=== PATIENT | male | born 1990 | race Caucasian/White ===

== ENCOUNTER 2020-08-03 22:29 | Inpatient (IN) | payer SELFPAY ==
[2020-08-04] MEDS ORDERED: Vancomycin 1 GM/200 ML BAG ONE (02:09)
[2020-08-04 02:22] LABS: Mean Corpuscular Hemoglobin 32.8 pg (27.0-31.0); Mean Platelet Volume 9.4 fL (7.4-10.4); Platelet Count 153 thou/uL (130-400); RBC Distribution Width 11.3 % (11.5-14.5); Red Blood Cell (RBC) Count 4.25 mill/uL (4.70-6.10); White Blood Cell (WBC) Count 17.4 thou/uL (4.8-10.8)
[2020-08-04 02:29] LABS: ALT (SGPT) 30 U/L (8-55); AST (SGOT) 20 U/L (5-34); Albumin 4.3 g/dL (3.5-5.0); Alkaline Phosphatase 73 U/L (40-110); Anion Gap 15 mmol/L (10-20); BUN (Urea Nitrogen) 16 mg/dL (8.9-20.6); Bilirubin, Total 1.5 mg/dL (0.2-1.2); Calc. Creatinine Clearance 0 mL/min (70-130); Calcium 9.2 mg/dL (7.8-10.44); Carbon Dioxide 24 mmol/L (22-29); Chloride 102 mmol/L (98-107); Glucose 119 mg/dL (70-105); Potassium 3.7 mmol/L (3.5-5.1); Protein, Total 7.3 g/dL (6.0-8.3); Sodium 137 mmol/L (136-145)
[2020-08-04 02:40] LABS: Band 14 % (5-11); Lymphocytes 13 % (21-51); MDiff Complete? YES; Monocytes 10 % (0-10); Neutrophil 62 % (42-75)
[2020-08-04] MEDS ORDERED: Piperacillin/Tazobactam 4.5 GM VIAL ONE (03:34)
[2020-08-04] MEDS ORDERED: Nicotine 14 MG PATCH ONE (03:35)
[2020-08-04] MEDS ORDERED: Acetaminophen 325 MG TAB PO PRN (03:47)
[2020-08-04] MEDS ORDERED: traMADol HCl 50 MG TAB PO PRN (03:48)
[2020-08-04] MEDS ORDERED: Acetaminophen/Codeine 30-300mg Tablet PO PRN (03:48)
[2020-08-04 08:14] LABS: SARS-CoV-2 MS2 Positive; SARS-CoV-2 N Gene Negative; SARS-CoV-2 S Gene Negative; SARS-CoV-2 by NAA Not Detected (NotDetected); SARS-CoV-2 orf1ab Negative
[2020-08-04 08:29] VITALS: BMI 21.4
--- NOTE | 2020-08-04 08:54 | PDOC.HHP ---
Hospitalist HPI - History of Present Illness Hand pain History of Present Illness: Mr. Edmond is 30-year-old male with past medical history of methamphetamine abuse, asthma, anxiety/bipolar disorder, tobacco use who presented to the emergency room for a right finger infection. Patient reports that 3 days prior to admission he cut his knuckle on a razor blade. Yesterday he started to notice an increase in swelling and pus coming out of the wound on his finger. Overnight he started to develop subjective fevers and chills so he presented to the ED. Patient is right-hand dominant. He denies any numbness, weakness or paresthesias. In emergency room initial vital signs 109/67, 18, 98.7, 100% on room air. Lactic acid 1.6. WBC 17.4. H/H 14.0/40. BUN/CR 16/0.94. Sodium 137, potassium 3.7. Patient received vancomycin, Zosyn in the emergency room. Patient admitted to hospital service for further management. Hospitalist ROS - Review of Systems Constitutional: reports: fever, chills. denies: sweats, weakness, malaise Eyes: denies: vision change ENT: denies: nose congestion, throat pain Respiratory: denies: cough, dry, shortness of breath, hemoptysis Cardiovascular: denies: chest pain, palpitations, orthopnea, light headedness Gastrointestinal: denies: nausea, vomiting, abdominal pain, diarrhea, melena, hematochezia Genitourinary: denies: dysuria, hematuria Musculoskeletal: reports: hand pain. denies: arm pain Skin: reports: rash, lesions Neurological: denies: weakness, numbness, seizures - Medication Medications: Home medications include Depakote Seroquel No known drug allergies Hospitalist History - Past Medical History Other Medical History: Past medical history of Methamphetamine use Asthma childhood Anxiety/bipolar disorder with previous inpatient admissions - Past Surgical History Other Surgical History: Past surgical history of Tendon reattachment's of the left pinky Left foot surgery - Family History Other Family History: No pertinent family history. - Social History Smoking Status: Current every day smoker Tobacco Type: cigarettes Alcohol: reports: None Drugs: reports: methamphetamine Living Situation: Friends Activity level: independent ambulation - Exam General Appearance: NAD, awake alert Eye: PERRL, anicteric sclera ENT: normocephalic atraumatic, no oropharyngeal lesions, moist mucosa Neck: supple, symmetric, no JVD, no thyromegaly, no lymphadenopathy, no carotid bruit Heart: RRR, no murmur, no gallops, no rubs, normal peripheral pulses Respiratory: CTAB, no wheezes, no rales, no ronchi, normal chest expansion, no tachypnea, normal percussion Gastrointestinal: soft, non-tender, non-distended, normal bowel sounds, no palpable masses, no hepatomegaly, no splenomegaly, no bruit Extremities - other findings: Wound to right index finger Skin - other findings: Right index finger erythema, edema. No flexor tendon sheath tenderness. Neurological: cranial nerve grossly intact, normal sensation to touch, no weakness, no focal deficits, no new deficit Musculoskeletal: normal tone, normal strength, no muscle wasting Psychiatric: normal affect, normal behavior, A&O x 3 Hospitalist Results - Labs Result Diagrams: 08/04/20 01:31 08/04/20 01:31 Lab results: WBC 17.4 thou/uL (4.8-10.8) H 08/04/20 01:31 Hgb 14.0 g/dL (14.0-18.0) 08/04/20 01:31 Hct 40.0 % (42.0-52.0) L 08/04/20 01:31 MCV 94.0 fL (78.0-98.0) 08/04/20 01:31 Plt Count 153 thou/uL (130-400) 08/04/20 01:31 Band Neuts % (Manual) 14 % (5-11) H 08/04/20 01:31 Sodium 137 mmol/L (136-145) 08/04/20 01:31 Potassium 3.7 mmol/L (3.5-5.1) 08/04/20 01:31 Chloride 102 mmol/L (98-107) 08/04/20 01:31 Carbon Dioxide 24 mmol/L (22-29) 08/04/20 01:31 BUN 16 mg/dL (8.9-20.6) 08/04/20 01:31 Creatinine 0.94 mg/dL (0.7-1.3) 08/04/20 01:31 Glucose 119 mg/dL (70-105) H 12/07/20 01:31 Lactic Acid 1.6 mmol/L (0.5-2.2) 08/04/20 03:28 Calcium 9.2 mg/dL (7.8-10.44) 08/04/20 01:31 Total Bilirubin 1.5 mg/dL (0.2-1.2) H 08/04/20 01:31 AST 20 U/L (5-34) 08/04/20 01:31 ALT 30 U/L (8-55) 08/04/20 01:31 Alkaline Phosphatase 73 U/L (40-110) 08/04/20 01:31 Serum Total Protein 7.3 g/dL (6.0-8.3) 08/04/20 01:31 Albumin 4.3 g/dL (3.5-5.0) 08/04/20 01:31 Hospitalist H&P A/P - Plan Plan: 30 year-old male with PMHx of bipolar disorder, methamphetamine use, tobacco use presents with infection of his R index finger after cutting himself with a razor blade accidentally two days prior to admission. Cellulitis with abscess of right index finger Patient with wound by razor blad to his R index finger knuckle two days [employer]ING[employer]. Wound started draining pus. Finger is erythematous, edematous and extension limited by pain. No flexor tendon sheath tenderness to palmar aspect of finger. Neurovascularly intact. Area of fluctulance above PIP. Patient received IV vancomycin and zosyn in the ER. Will keep NPO and consult hand surgery for further recommendations. Plan -NPO, hand surgery consult -Plain film of R hand -Wound culture -Continue IV abx Sepsis without septic shock Patient meets sepsis criteria secondary to R index finger infection. WBC elevated at 17.4. Lactic acid 1.6. Febrile to 100.4. BP stable. Patient started on vancomycin and zosyn in the ER. Blood cultures drawn. Plan -Continue IV abx vancomycin and zosyn, IVF -Follow blood cultures -Trend WBC, fever curve Bipolar disorder Hx of bipolar disorder on Seroquel and Depakote. Currently denies SI/HI. Will continue home meds. Methamphetamine use Hx of methamphetamine abuse. Patient does not know when he last used. Tox screen. Tobacco use Patient smokes 1PPD. Will have nicotine patch available. Counseled on smoking cessation. DVT prophylaxis: SCDs FULL CODE Patient discussed with Dr. Crowe.
[2020-08-04] MEDS ORDERED: Ondansetron ODT 4 MG TAB PO PRN (09:05)
[2020-08-04] MEDS ORDERED: Ondansetron PF 4 MG/2 ML Vial IVP PRN (09:05)
[2020-08-04] MEDS: Piperacillin/Tazobactam 3.375 GM in Sodium Chloride 0.9% 100 ML IVPB SCH ×3 (09:31→20:31)
[2020-08-04] MEDS: Sodium Chloride 0.9% 1,000 ML IV SCH ×2 (09:31→20:35)
[2020-08-04] MEDS: Nicotine 14 MG PATCH TD SCH (09:32)
--- NOTE | 2020-08-04 09:36 | RAD ---
RADIOGRAPH RIGHT HAND 3VIEWS: DATE: 08/04/2020 HISTORY: 30-year-old male with "right hand abscess" FINDINGS: There is no evidence of fracture or dislocation. There is no evidence of periostitis, permeative lesi on, osteolytic lesion, or osteoblastic lesion. The joint spaces are maintained without erosions or significant osteophytes. There is soft tissue swelling of the index finger, especially its mid and pr oximal portions. There is no subcutaneous emphysema. No soft tissue calcifications. IMPRESSION: 1) soft tissue edema of right second digit. 2) no osseous abnormality.
[2020-08-04] MEDS: Vancomycin HCl 1.25 GM in Sodium Chloride 0.9% 250 ML 250 ML IVPB SCH ×2 (11:43→17:28)
[2020-08-04 15:11] LABS: Amphetamine Detected (NotDetected); Barbiturates Screen Not Detected (NotDetected); Benzodiazepine Screen Not Detected (NotDetected); Cocaine Metabolite Screen Not Detected (NotDetected); Medtox Control Line Valid? VALID (VALID); Medtox Reader # READER 4; Methadone Not Detected (NotDetected); Methamphetamine Detected (NotDetected); Opiate Screen Not Detected (NotDetected); Oxycodone Screen Not Detected (NotDetected); Phencyclidine (PCP) Not Detected (NotDetected); THC/Cannabinoid Screen Detected (NotDetected); Tricyclic Screen Not Detected (NotDetected)
[2020-08-05 01:56] LABS: Vancomycin, Trough 6.8 ug/mL
[2020-08-05] MEDS: Vancomycin HCl 1.25 GM in Sodium Chloride 0.9% 250 ML 250 ML IVPB SCH ×3 (02:43→19:22)
[2020-08-05] MEDS: Sodium Chloride 0.9% 1,000 ML IV SCH ×2 (02:44→19:22)
[2020-08-05] MEDS: Piperacillin/Tazobactam 3.375 GM in Sodium Chloride 0.9% 100 ML IVPB SCH ×5 (04:18→23:11)
[2020-08-05 06:30] LABS: #Basophils 0.1 thou/uL (0.0-0.2); #Eosinphils 0.4 thou/uL (0.0-0.7); #Monocytes 1.8 thou/uL (0.11-0.59); #Neutrophils 9.9 thou/uL (1.40-6.50); %Basophils 0.5 % (0.0-1.0); %Eosinophils 3.1 % (0.0-10.0); %Lymphocytes 13.8 % (21.0-51.0); %Monocytes 12.8 % (0.0-10.0); %Neutrophils 69.8 % (42.0-75.0); Hemoglobin 14.5 g/dL (14.0-18.0); Mean Corpuscular HGB CONC 34.5 g/dL (32.0-36.0); Mean Corpuscular Hemoglobin 32.7 pg (27.0-31.0); Mean Platelet Volume 9.4 fL (7.4-10.4); Platelet Count 150 thou/uL (130-400); RBC Distribution Width 11.4 % (11.5-14.5); Red Blood Cell (RBC) Count 4.45 mill/uL (4.70-6.10); White Blood Cell (WBC) Count 14.2 thou/uL (4.8-10.8)
[2020-08-05 06:52] LABS: Anion Gap 14 mmol/L (10-20); BUN (Urea Nitrogen) 9 mg/dL (8.9-20.6); Calc. Creatinine Clearance 116 mL/min (70-130); Calcium 8.8 mg/dL (7.8-10.44); Carbon Dioxide 22 mmol/L (22-29); Chloride 104 mmol/L (98-107); Glucose 96 mg/dL (70-105); Potassium 4.1 mmol/L (3.5-5.1); Sodium 136 mmol/L (136-145)
[2020-08-05] MEDS ORDERED: Vancomycin HCl 1.25 GM in Sodium Chloride 0.9% 250 ML 250 ML IVPB SCH (09:00)
--- NOTE | 2020-08-05 10:59 | PDOC.HOSPP ---
- Subjective Encounter Date: 08/05/20 Encounter Time: 10:53 Subjective: No overnight events. Patient continues to endorse mild pain to his R hand. Denies fevers, night-sweats, or chills. Chart and records reviewed. - Objective Vital Signs & Weight: Vital Signs (12 hours) Temp Pulse Resp BP BP Pulse Ox 08/05/20 07:27 98.5 F 60 18 99/64 97 08/05/20 04:56 98.0 F 65 20 108/70 96 08/05/20 00:46 98.5 F 71 20 102/67 95 Weight Weight 141 lb 1.533 oz Result Diagrams: 08/05/20 06:03 08/05/20 06:03 Hospitalist ROS - Review of Systems Constitutional: denies: fever, chills, sweats, weakness, malaise, other Eyes: denies: vision change ENT: reports: mouth swelling. denies: nose congestion, throat pain Respiratory: denies: cough, dry, shortness of breath, sputum, wheezing Cardiovascular: denies: chest pain, palpitations, light headedness Gastrointestinal: denies: nausea, vomiting, abdominal pain, melena, hematochezia Genitourinary: denies: dysuria, hematuria Musculoskeletal: reports: hand pain Skin: reports: rash, lesions Neurological: denies: weakness, numbness - Medication Medications: Active Medications Generic Name Dose Route Start Last Admin Trade Name Freq PRN Reason Stop Dose Admin Piperacillin Sod/Tazobactam 100 mls @ 200 mls/hr 08/04/20 09:00 08/05/20 09:04 Sod 3.375 gm/ Sodium Chloride IVPB 100 mls 0300,0900,1500,2100 ERICA Administration Sodium Chloride 1,000 mls @ 100 mls/hr 08/04/20 09:15 08/05/20 02:44 Normal Saline 0.9% IV 1,000 mls .Q10H ERICA Administration Nicotine 14 mg 08/04/20 10:00 08/04/20 09:32 Nicotine 14 Mg Patch TD 14 mg Q24HR ERICA Administration Tramadol HCl 50 mg 08/04/20 03:48 08/04/20 20:32 Tramadol Hcl 50 Mg Tab PO 50 mg Q6H PRN Administration Moderate Pain (4-6) - Exam General Appearance: NAD, awake alert Eye: PERRL, anicteric sclera ENT: normocephalic atraumatic, no oropharyngeal lesions, moist mucosa Neck: supple, symmetric, no JVD, no thyromegaly, no lymphadenopathy, no carotid bruit Heart: RRR, no murmur, no gallops, no rubs, normal peripheral pulses Respiratory: CTAB, no wheezes, no rales, no ronchi, normal chest expansion, no tachypnea, normal percussion Gastrointestinal: soft, non-tender, non-distended, normal bowel sounds, no palpable masses, no hepatomegaly, no splenomegaly, no bruit Skin - other findings: Erythema, induration, edema to R index finger with purulent drainage Neurological: cranial nerve grossly intact, normal sensation to touch, no weakness, no focal deficits, no new deficit Musculoskeletal: normal tone, normal strength, no muscle wasting Psychiatric: normal affect, normal behavior, A&O x 3 Hosp A/P - Plan Plan: 30 year-old male with PMHx of bipolar disorder, methamphetamine use, tobacco use presents with infection of his R index finger after cutting himself with a razor blade accidentally two days prior to admission. Cellulitis of right index finger Patient with wound by razor blad to his R index finger knuckle two days [employer]. Wou nd started draining pus. Finger is erythematous, edematous and extension limited by pain. No flexor tendon sheath tenderness to palmar aspect of finger. Neurovascularly intact. Area of fluctulance above PIP. Patient received IV vancomycin and zosyn in the ER. Plain film of R hand revealed soft-tissue swelling with no sings of gas or fluid collection. Hand surgery consulted. Recommendations appreciated. Plan -NPO, hand surgery consult -Wound culture -Continue IV abx Sepsis without septic shock Patient meets sepsis criteria secondary to R index finger infection. WBC e levated at 17.4. Lactic acid 1.6. Febrile to 100.4. BP stable. Patient started on vancomycin and zosyn in the ER. Blood cultures drawn. Plan -Continue IV abx vancomycin and zosyn, IVF -Follow blood cultures -Trend WBC, fever curve Bipolar disorder Hx of bipolar disorder on Seroquel and Depakote. Currently denies SI/HI. Will continue home meds. Methamphetamine use Hx of methamphetamine abuse. Tox screen positive. Tobacco use Patient smokes 1PPD. Will have nicotine patch available. Counseled on smoking cessation. DVT prophylaxis: SCDs FULL CODE Patient discussed with Dr. Crowe.
[2020-08-05] MEDS ORDERED: FLU VACC QS2020-21(6MOS UP)/PF 60 MCG/0.5 ML SYRINGE IM ONE (11:15)
[2020-08-05] MEDS ORDERED: Dexamethasone 20 MG/5 ML VIAL ONE (11:29)
[2020-08-05] MEDS ORDERED: Ketorolac Tromethamine 30 MG/ML VIAL ONE (11:29)
[2020-08-05] MEDS ORDERED: Ondansetron PF 4 MG/2 ML Vial ONE (11:29)
[2020-08-05] MEDS ORDERED: PROPOFOL 200 MG/20 ML VIAL ONE (11:29)
[2020-08-05] MEDS ORDERED: diphenhydrAMINE 50 MG/ML VIAL ONE (11:29)
[2020-08-05] MEDS: Nicotine 14 MG PATCH TD SCH (13:41)
[2020-08-05] MEDS ORDERED: Sodium Chloride 0.9% 20 ML ONE (18:10)
[2020-08-05] MEDS ORDERED: Bupivacaine PF 0.5% 30 ML VIAL ONE (18:10)
[2020-08-05] MEDS ORDERED: Fentanyl 100 MCG/2 ML VIAL ONE (18:21)
[2020-08-05] MEDS ORDERED: Midazolam HCl 2 mg/2 ml Vial ONE (18:21)
[2020-08-05] MEDS ORDERED: Promethazine HCl 25 MG/ML VIAL IM PRN (19:43)
[2020-08-05] MEDS ORDERED: PACU-Morphine 4MG/ML VIAL SLOW IVP PRN (19:43)
[2020-08-05] MEDS ORDERED: Morphine Sulfate 2 MG/ML SYRINGE SLOW IVP PRN (19:43)
[2020-08-05] MEDS ORDERED: Meperidine HCl/PF 25 MG/ML VIAL SLOW IVP PRN (19:43)
[2020-08-05] MEDS ORDERED: Ondansetron HCl/PF 4 MG/2 ML Vial IVP PRN (19:43)
[2020-08-05] MEDS ORDERED: Morphine 4 MG/ML VIAL SLOW IVP PRN (22:16)
[2020-08-05] MEDS: Ketorolac Tromethamine 30 MG/ML VIAL IVP SCH (23:09)
[2020-08-06] MEDS: Vancomycin HCl 1.25 GM in Sodium Chloride 0.9% 250 ML 250 ML IVPB SCH ×4 (02:35→19:31)
[2020-08-06 04:44] LABS: #Lymphocytes 1.4 thou/uL (1.20-3.40); #Monocytes 1.1 thou/uL (0.11-0.59); #Neutrophils 8.5 thou/uL (1.40-6.50); %Basophils 0.3 % (0.0-1.0); %Eosinophils 0.3 % (0.0-10.0); %Lymphocytes 12.7 % (21.0-51.0); %Monocytes 10.3 % (0.0-10.0); %Neutrophils 76.5 % (42.0-75.0); Mean Corpuscular HGB CONC 33.6 g/dL (32.0-36.0); Mean Corpuscular Hemoglobin 32.8 pg (27.0-31.0); Mean Corpuscular Volume 97.5 fL (78.0-98.0); Mean Platelet Volume 9.6 fL (7.4-10.4); Platelet Count 176 thou/uL (130-400); RBC Distribution Width 11.2 % (11.5-14.5); Red Blood Cell (RBC) Count 4.58 mill/uL (4.70-6.10); White Blood Cell (WBC) Count 11.1 thou/uL (4.8-10.8)
[2020-08-06] MEDS: Sodium Chloride 0.9% 1,000 ML IV SCH ×3 (04:45→11:16)
[2020-08-06 05:06] LABS: Vancomycin, Random 20.7 ug/mL (See Comment)
[2020-08-06 05:07] LABS: Anion Gap 16 mmol/L (10-20); BUN (Urea Nitrogen) 18 mg/dL (8.9-20.6); Calc. Creatinine Clearance 84 mL/min (70-130); Calcium 8.8 mg/dL (7.8-10.44); Carbon Dioxide 25 mmol/L (22-29); Chloride 103 mmol/L (98-107); Glucose 99 mg/dL (70-105); Potassium 3.8 mmol/L (3.5-5.1); Sodium 140 mmol/L (136-145)
[2020-08-06] MEDS: Ketorolac Tromethamine 30 MG/ML VIAL IVP SCH ×3 (07:10→17:02)
[2020-08-06] MEDS: Piperacillin/Tazobactam 3.375 GM in Sodium Chloride 0.9% 100 ML IVPB SCH ×3 (07:52→19:29)
[2020-08-06] MEDS: Nicotine 14 MG PATCH TD SCH (10:04)
--- NOTE | 2020-08-06 18:20 | PDOC.HOSPP ---
- Subjective Encounter Date: 08/06/20 Encounter Time: 11:40 Subjective: Patient is seen this morning for follow-up on right hand cellulitis. He was taken to the OR yesterday for an I&D. He states he is feeling well at this time and feels his hand is getting better. Patient frequently leaving room to go outside and smoke, has missed multiple timed antibiotics due to this. Highly encourage patient to be compliant with plan of care discussed the risks involved if he does not receive his antibiotics or if the infection were to get worse. He stated he would no longer miss an antibiotic and would work to stay in his room. - Objective Vital Signs & Weight: Vital Signs (12 hours) Temp Pulse Resp BP Pulse Ox 08/06/20 16:09 98.0 F 57 L 18 113/71 100 08/06/20 11:12 97.5 F L 73 20 113/55 L 95 Weight Weight 141 lb 1.533 oz I&O: 08/05/20 08/06/20 08/07/20 06:59 06:59 06:59 Intake Total 800 Balance 800 Result Diagrams: 08/06/20 04:29 08/06/20 04:29 Hospitalist ROS - Medication Medications: Active Medications Generic Name Dose Route Start Last Admin Trade Name Freq PRN Reason Stop Dose Admin Piperacillin Sod/Tazobactam 100 mls @ 200 mls/hr 08/05/20 23:59 08/06/20 07:52 Sod 3.375 gm/ Sodium Chloride IVPB 100 mls Q6HR ERICA Administration Vancomycin HCl 1.25 gm/ Sodium 250 mls @ 166.667 mls/hr 08/06/20 09:00 08/06/20 11:14 Chloride IVPB 08/10/20 21:01 250 mls 0300,0900,1500,2100 ERICA Administration Ketorolac Tromethamine 30 mg 08/05/20 23:00 08/06/20 10:02 Ketorolac Tromethamine 30 Mg/Ml Vial IVP 08/10/20 23:01 30 mg 0500,1100,1700,2300 ERICA Administration Nicotine 14 mg 08/04/20 10:00 08/06/20 10:04 Nicotine 14 Mg Patch TD Not Given Q24HR ERICA Tramadol HCl 50 mg 08/04/20 03:48 08/04/20 20:32 Tramadol Hcl 50 Mg Tab PO 50 mg Q6H PRN Administration Moderate Pain (4-6) Hosp A/P - Plan Cellulitis of right index finger -Taken to OR yesterday -Awaiting wound culture results -Continue IV abx Sepsis without septic shock -Continue IV abx vancomycin and zosyn, IVF -Follow blood cultures -Trend WBC, fever curve Bipolar disorder Hx of bipolar disorder on Seroquel and Depakote. Currently denies SI/HI. Will continue home meds. Methamphetamine use Hx of methamphetamine abuse. Tox screen positive. Tobacco use Patient smokes 1PPD. Patient taking multiple trips outside to smoke, encouraged patient to stay in room to receive antibiotics on time and to use nicotine patch.
--- NOTE | 2020-08-06 18:54 | CON ---
DATE OF CONSULTATION: 08/06/2020 HISTORY OF PRESENT ILLNESS: Laceration of the right index finger while he was trying to cut a piece of plastic, history of bipolar disorder, prior chronic left otitis media with rupture of tympanic membrane and hearing deficit and homelessness, who inadvertently sustained an injury to his right index finger while he was trying to cut a piece of plastic with a razor blade. This occurred 4 days before admission. He developed inflammatory changes, went to [facility] and he was referred for admission. He initially left against medical advice and then came straight to the emergency room at [facility]. Dr. Jain has operated on the index finger. Unfortunately, the operative report is not yet available. The hand is dressed with a splint. He denies any headaches, visual symptoms, sore throat, odynophagia, or dysphagia. No dental pain. No back pain. No cough or sputum production. No chest pain. No abdominal pain. No diarrhea. No genitourinary symptoms. No joint symptoms outside the involved area. MEDICAL HISTORY: Bipolar disorder, asthma, chronic otitis media on left side with hearing impairment, left foot surgery. SOCIAL HISTORY: History of methamphetamine use in the past. Current smoker and there are some questions regarding his living arrangements. Looks like he has been homeless in the recent past. ALLERGIES: NONE. MEDICATIONS: 1. Depakote. 2. Seroquel. PHYSICAL EXAMINATION: VITAL SIGNS: T-max 100.4, blood pressure 113/71, heart rate 57, respiratory rate 18, O2 saturation 100%. GENERAL: He appears in no distress. EXTREMITIES: The right hand is encased in a bulky dressing with a splint. LYMPHATIC: He has no lymphadenopathy. HEENT: Ocular movements conjugate. Oral cavity normal. A few missing teeth. NECK: Supple. No jugular venous distention. LUNGS: Symmetric. Clear breath sounds. HEART: S1 and S2. Regular rate. No S3 or S4. ABDOMEN: Soft, not distended or tender. No ascites. No bladder distention. JOINT: No joint inflammatory activity outside the involved area. NEUROLOGIC: Nonfocal. LABORATORY DATA: White cell count 17.4, down to 11; hemoglobin 15; platelets 176. Sodium 140, creatinine 1.14, and transaminases normal. Albumin 4.3. SARS-CoV-2 PCR not detected. Two different samples from the finger, one from August 03 and the second from August 04 with beta-hemolytic Streptococcus group A retrieved. There was another culture from today, which is pending. Two sets of blood culture, no growth in 48 hours. Unfortunately, due to problems with the [employer], I cannot access the reports from the x-rays. ASSESSMENT: Homelessness, bipolar disorder, and asthma history with accidental laceration of the right index finger. Inflammatory changes developed a few days after secondary to group A Streptococcus infection. Unfortunately, I cannot access the radiology reports and the surgical report is not yet transcribed, so I am going to go ahead and switch him to [facility] and then preparation for discharge planning hopefully tomorrow on oral medication depending on Dr. Jain's evaluation and the need for further surgical intervention. We will go ahead and check his human immunodeficiency virus and hepatitis C serology while he is here. ADDENDUM: my[employer] functions have been recovered and I was able to review all the data. With that in mind, the hand x-ray did not show any evidence of osteolytic changes and we are just waiting on the report from Dr. Jain's intervention to then decide on outpatient antimicrobial therapy requirements. Potentially, we could conceive of discharge planning on oral Keflex 500 four times daily. Job ID: [id number]
[2020-08-06 20:01] VITALS: BP 101/65; TEMP 97.4
--- NOTE | 2020-08-06 20:12 | PDOC.EVN ---
Event Note - Event Note Event Note: Notified by RN, patient leaving AMA due to family emergency.
[2020-08-06 20:26] LABS: Vancomycin, Trough 15.9 ug/mL
--- NOTE | 2020-08-07 07:34 | OP ---
DATE OF PROCEDURE: 08/05/2020 PREOPERATIVE DIAGNOSIS: Left index finger proximal interphalangeal joint abscess. POSTOPERATIVE DIAGNOSES: Abscess cavity was thick almost 1 mm to 1.5 mm and there was erosion of the entire extensor mechanism tendon at the joint level with infection to the skin, subcutaneous, extensor tendon, both sides and the joint. PROCEDURES PERFORMED: 1. Arthrotomy with abscess drainage. 2. Tenotomy, extensor tendon involving the necrotic portion leaving almost a 3 mm gap in the extensor tendon with only the lateral band still intact. SPECIMEN SENT: Cultures for aerobic, anaerobic, AFB (which include tissue) and fungal. TOURNIQUET TIME: 11 minutes. ESTIMATED BLOOD LOSS: Less than or equal to 10 mL. INJECTABLES: 20 mL 0.5% Marcaine. DESCRIPTION OF PROCEDURE: After successful general endotracheal anesthesia, limb prepped and draped. Time-out was done appropriately. The patient had injection of the 10 mL preop, metacarpophalangeal joint block level, waited 2 minutes, exsanguinated the limb, then inflated tourniquet to 250 mmHg pressure. At this point, the exsanguinated limb had the already 12 mm transverse incision just distal to the joint where gross purulence could be seen, extended in a zigzag fashion, 1 cm distal and 15 mm proximal. Exposing the extensor mechanism and medially, the skin edges at this laceration had purulence. The subcutaneous tissue between skin and the extensor mechanism had purulence, the periosteal layer between the under surface extensor mechanism and the joint had purulence and there was purulence in the joint. We slowly debrided this with a combination of [place]od[place] blade, tenotomy scissors, curette from each level until we had removed enough tissue to send for cultures. We also used a tenotomy scissors to debride the edges of the tendon in a formal tenotomy 1 mm, so that we could reach noninfected, nonfriable tissue. With this exposure, we were able to visualize the joint, and do the same type of synovectomy debridement using tenotomy scissors and excisional technique at the level of the joint. We irrigated this with 2 L normal saline and Pulsavac pressure, debridement of subcutaneous tissue as well as the wound itself, and then packed the wound with normal saline soaked gauze, 4x4s on top of this, a splint and the patient then left the operating room with no evidence of anesthetic or operative complication. Job ID: [id number]
[2020-08-07] MEDS ORDERED: cefTRIAXone\\ROCEPHIN 2 GM in Sodium Chloride 0.9% 100 ML IVPB SCH (09:00)
[2020-08-08 15:37] LABS: Fungus Stain Final report (.)
== END 2020-08-06 21:25 | disposition home or self-care (01) | DRG 854 ==
LOC: ERS 22:29 → ERHOLD 08-04 03:09 → T4-B 08-04 07:11
PROVIDERS: ADMIT Internal Medicine; ATTEND Internal Medicine
PROC: 0RBX0ZZ Excision of Left Finger Phalangeal Joint, Open Approach (ICD-10-PCS; principal; 2020-08-05)
DX: A41.9 Sepsis, unspecified organism (principal); R64 Cachexia; F41.9 Anxiety disorder, unspecified; F31.9 Bipolar disorder, unspecified; F15.90 Other stimulant use, unspecified, uncomplicated; L03.011 Cellulitis of right finger; F17.210 Nicotine dependence, cigarettes, uncomplicated; J45.909 Unspecified asthma, uncomplicated; H66.92 Otitis media, unspecified, left ear; Z20.828 Contact with and (suspected) exposure to other viral communicable diseases; Z79.899 Other long term (current) drug therapy; Z59.0 Homelessness; Z53.29 Procedure and treatment not carried out because of patient's decision for other reasons; Z68.21 Body mass index [BMI] 21.0-21.9, adult
CPT/HCPCS: 36415; 80048; 80053; 80202; 80306; 83605; 85025; 87040; 87070; 87077; 87102; 87116; 87186; 87205; 87206; 87635; 93005; 93010; 94760; 96365; 96367; J1100; J1200; J1885; J2250; J2405; J2543; J2704; J3010; J3370; J3490; J7050; S0020; U0003

== ENCOUNTER 2020-08-08 02:58 | Emergency (ER) | payer SELFPAY | END 2020-08-08 05:27 | disposition home or self-care (01) | LOC: ERS 02:58 | DX: L08.9 Local infection of the skin and subcutaneous tissue, unspecified (principal); J45.909 Unspecified asthma, uncomplicated; F17.210 Nicotine dependence, cigarettes, uncomplicated; W26.9XXA Contact with unspecified sharp object(s), initial encounter | CPT/HCPCS: 99283 ==

== ENCOUNTER 2020-08-08 10:29 | Inpatient (IN) | payer SELFPAY ==
[2020-08-08 12:24] VITALS: BMI 19.0
[2020-08-08] MEDS ORDERED: Meperidine HCl/PF 25 MG/ML VIAL IM PRN (12:24)
[2020-08-08] MEDS ORDERED: Morphine 2 MG/ML VIAL SLOW IVP PRN (12:24)
[2020-08-08] MEDS ORDERED: Promethazine HCl 25 MG/ML VIAL IM PRN (12:25)
[2020-08-08] MEDS ORDERED: HYDROcodone/Acetaminophen 7.5/325 mg Tablet PO PRN (12:26)
[2020-08-08] MEDS: Dextrose 5 % And 0.9 % NaCl 1,000 ML IV SCH (12:49)
[2020-08-08] MEDS ORDERED: Vancomycin 1 GM in Premix Bag 1 BAG IVPB SCH (13:00)
[2020-08-08] MEDS ORDERED: FLU VACC QS2020-21(6MOS UP)/PF 60 MCG/0.5 ML SYRINGE IM ONE (13:00)
[2020-08-08] MEDS ORDERED: Clindamycin/D5W 900 MG in Premix Bag 1 BAG IVPB SCH (17:30)
[2020-08-08 18:35] LABS: SARS-CoV-2 NAA Rapid Test Not Detected (NotDetected)
[2020-08-09] MEDS: Dextrose 5 % And 0.9 % NaCl 1,000 ML IV SCH (06:25)
[2020-08-09] MEDS ORDERED: Clindamycin/D5W 900 mg/50 ml Premix Bag ONE (08:43)
[2020-08-09] MEDS ORDERED: Bupivacaine PF 0.5% 30 ML VIAL ONE (09:10)
[2020-08-09] MEDS ORDERED: Sodium Chloride 0.9% 10 ML ONE ×2 (09:10→09:11)
[2020-08-09] MEDS ORDERED: Fentanyl 100 MCG/2 ML VIAL ONE ×2 (09:20→09:21)
[2020-08-09] MEDS ORDERED: Midazolam HCl 2 mg/2 ml Vial ONE (09:20)
[2020-08-09] MEDS ORDERED: HYDROmorphone 2 MG/ML VIAL SLOW IVP PRN (10:20)
[2020-08-09] MEDS ORDERED: Ketorolac Tromethamine 30 MG/ML VIAL IVP PRN (10:20)
[2020-08-09] MEDS ORDERED: Morphine Sulfate 2 MG/ML SYRINGE SLOW IVP PRN (10:20)
[2020-08-09] MEDS ORDERED: Promethazine HCl 25 MG/ML VIAL SLOW IVP PRN (10:20)
[2020-08-09] MEDS ORDERED: Promethazine HCl 25 MG/ML VIAL IM PRN (10:20)
[2020-08-09] MEDS ORDERED: Meperidine HCl/PF 25 MG/ML VIAL SLOW IVP PRN (10:20)
[2020-08-09] MEDS ORDERED: Ondansetron HCl/PF 4 MG/2 ML Vial IVP PRN (10:20)
[2020-08-09] MEDS ORDERED: PACU-Morphine 4MG/ML VIAL SLOW IVP PRN (10:20)
[2020-08-09] MEDS ORDERED: Ketorolac Tromethamine 30 MG/ML VIAL ONE (11:29)
[2020-08-09] MEDS ORDERED: Lidocaine 1% PF 5 ML VIAL ONE (11:29)
[2020-08-09] MEDS ORDERED: PROPOFOL 200 MG/20 ML VIAL ONE (11:29)
[2020-08-09] MEDS ORDERED: Ondansetron PF 4 MG/2 ML Vial ONE (11:29)
[2020-08-09] MEDS ORDERED: CEFAZOLIN 2 GM in Premix Bag 1 BAG IVPB SCH (13:45)
[2020-08-09 15:18] VITALS: BP 107/70; TEMP 98
--- NOTE | 2020-08-10 13:21 | OP ---
DATE OF PROCEDURE: 08/09/2020 COMPLICATIONS: None. TOURNIQUET TIME: Zero. ESTIMATED BLOOD LOSS: Less than 10 mL. INJECTABLE: 20 cc of 0.5% Marcaine without epinephrine. PREOPERATIVE DIAGNOSES: Open wound, proximal phalangeal joint, right index finger with central slip laceration secondary to deep abscess after one previous debridement. POSTOPERATIVE DIAGNOSES: Open wound, proximal interphalangeal joint with central slip greater than 90% laceration, but with approximately 3 mm of central slip intact distal to the laceration and exposed joint and all the lateral bands intact. PROCEDURE PERFORMED: 1. Debridement of wound. 2. Debridement of open joint proximal phalangeal right index finger. 3. Closure of 5 cm wound. 4. Extensor tendon repair, central slip primarily zone 3. Again, no gross infection. DESCRIPTION OF PROCEDURE: After successful general endotracheal anesthesia, the patient was brought to the operating room. Already had previous debridement 5 days ago and was now prepared for wound closure at minimum and if possible would advance the tendon to close the defect over the joint/central slip repair. Once we had obtained appropriate anesthesia, a preprocedure 10 cc 0.5% Marcaine block without epinephrine to the metacarpophalangeal joint, we undermined all the edges of the wound, undermined the tendon from the soft tissue, with the bone, and undermined all areas of the joint. We found the lateral bands were still intact radially and ulnarly. We elevated them, found no infection either. We then debrided the wound edges using tenotomy scissors and Lamb blade, debrided the tendon edges by about 0.5 mm using tenotomy scissors and saw that with the finger fully extended, these ends did touch each other easily. For this reason, after irrigation with 2 L normal saline, half which was on Pulsavac and both of which had antibiotics inside, we obtained hemostasis. We used a curette to help us curette off any granulation tissue off the tendon, on its radial side, did relaxing incision between the central slip and the terminal extensor tendon and the lateral band to allow us to be able to mobilize the tendon edges more. Then, we began a reconstruction from inside out using 4-0 Prolene in a [id number]. It took seven of the sutures overlapping sometimes to bring the extensor mechanism all the way back touching without gap formation and I could flex it 25 to 30 degrees, and there was no gap formation, but it did not go further than that at this time. We irrigated the wound, obtained hemostasis. We then closed the wound with interrupted 5-0 nylon and the patient left the operating room without evidence of anesthetic or operative complications with a metal finger splint applied to the level of the MP joint and a PIP joint protective splint of 3-inch wide of Fiberglass. The patient had no complications and the finger was pink both in the operating room and in the recovery. Job ID: [id number]
--- NOTE | 2020-08-12 05:04 | PQF ---
CLINICAL DOCUMENTATION CLARIFICATION FORM: Dear : Addi Jain Date / Time: 08/12/2020 4609 Please exercise your independent, professional judgment in responding to the clarification form. Clinical indicators are provided on the bottom of this form for your review Please check appropriate box(es): [ ] Excisional Debridement: Depth / layer: (deepest layer of debridement): [ ] Skin [ ] Subcutaneous [ ] Fascia [ ] Muscle [ ] Tendon [ ] Bone [ ] Non-excisional Debridement: (Removal by ?ushing, brushing, chemical, or washing) Depth / layer: (deepest layer of debridement): [ ] Skin [ ] Subcutaneous [ ] Fascia [ ] Muscle [ ] Tendon [ ] Bone [ ] Other procedure, please specify [ ] Unable to determine Physician Signature: Date/Time: For continuity of documentation, please document condition throughout progress notes and discharge summary. Thank You. To be completed by CDI/Coding staff for physician review: Present Clinical Indicators - Signs / Symptoms / Labs Results and Location in Medical Record [X] we undermined all the edges of the wound, undermined the tendon from the soft tissue, with the bone, and undermined all areas of the joint. We found the lateral bands were still intact radially and ulnarly. Operative report Dr Jain 08/09 [X] We then debrided the wound edges using tenotorrry scissors and Edgefield blade, debrided the tendon edges by about 0.5 mm using tenotomy scissors and S3 w that with the finger fully extended, these ends bid touch each other easily. Operative report Dr Jain 08/09 Present Risk Factors Results and Location in Medical Record [X] Open Wound, proximal interphalangeal joint with central slip greater than 90% laceration Operative report Dr Jain 08/09 [X] 3 mm of central slip intact distal to the laceration and exposed joint and all the lateral band intact Operative report Dr Jain 08/09 Present Treatments Results and Location in Medical Record [X] Debridement open joint proximal phalangeal right index finger Operative report Dr Jain 08/09 [X] Closure of 5 cm wound Operative report Dr Jain 08/09 [X] Extensor tendon repair, central slip primarily zone [address] Jain 08/09 CDS/Junior Systems Engineer Signature: Jasmine Armendariz Phone #: [email or web address] [phone] Date/Time: 08/12/2020 0504 This is a permanent part of the Medical Record [facility]
--- NOTE | 2020-08-12 05:05 | PQF ---
CLINICAL DOCUMENTATION CLARIFICATION FORM: Dear : Addi Jain Date / Time: 08/12/2020 0504 Please exercise your independent, professional judgment in responding to the clarification form. Clinical indicators are provided on the bottom of this form for your review Please check appropriate box(es): [ ] Central slip laceration is an accidental laceration due to recent debridement [ ] Central slip laceration is not related to procedure [ ] Other, please specify: [ ] Unable to determine Physician Signature: Date/Time: For continuity of documentation, please document condition throughout progress notes and discharge summary. Thank You. To be completed by CDI/Coding staff for physician review: Present Clinical Indicators - Signs / Symptoms / Labs Results and Location in Medical Record [X] Central slip laceration secondary to deep abscess after one previous debridement Operative report Dr Jain 08/09 [X] Possible wound advance the tendon to close the defect over the joint/central slip repair Operative report Dr Jain 08/09 Present Risk Factors Results and Location in Medical Record [X] Open Wound, proximal interphalangeal joint with central slip greater than 90% laceration Operative report Dr Jain 08/09 [X] 3 mm of central slip intact distal to the laceration and exposed joint and all the lateral band intact Operative report Dr Jain 08/09 Present Treatments Results and Location in Medical Record [X] Debridement open joint proximal phalangeal right index finger Operative report Dr Jain 08/09 [X] Closure of 5 cm wound Operative report Dr Jain 08/09 [X] Extensor tendon repair, central slip primarily zone [address] Jain 08/09 CDS/Clerk Typist Signature: Jasmine Armendariz Phone #: [phone] Date/Time: 08/12/2020 0509 This is a permanent part of the Medical Record [facility]
== END 2020-08-09 15:29 | disposition home or self-care (01) | DRG 514 ==
LOC: 3SE 11:50 → SURG A 15:52
PROVIDERS: ADMIT Orthopaedic Surgery Hand Surgery; ATTEND Orthopaedic Surgery Hand Surgery
PROC: 0LD70ZZ Extraction of Right Hand Tendon, Open Approach (ICD-10-PCS; principal; 2020-08-08)
DX: S66.821A Laceration of other specified muscles, fascia and tendons at wrist and hand level, right hand, initial encounter (principal); X58.XXXA Exposure to other specified factors, initial encounter; Z28.21 Immunization not carried out because of patient refusal; Z20.828 Contact with and (suspected) exposure to other viral communicable diseases
CPT/HCPCS: J0690; J1885; J2175; J2250; J2270; J2405; J2550; J2704; J3010; J3370; J3490; S0020; U0002